=== PATIENT | male | born 1945 | race Caucasian/White ===

== ENCOUNTER → 2016-08-09 | Outpatient (CLI) | payer OTHER ==
--- NOTE | 2016-08-09 18:12 | DX ---
Chest, Two Views at 1731 hours History: Atrial fibrillation, I 48.91. Cough. Comparison: CT September 2013 Findings: Cardiac silhouette is within normal range. Lower thoracic levoscoliosis. Bilateral peribron chial thickening. No pneumonia, congestive heart failure, pleural effusion, or pneumothorax. Impression: 1. Bronchitis. 2. No definite pneumonia. 3. No pneumothorax. 4. Consider CT chest imaging if clinically indicated.
== END ==
LOC: FIMAGING 17:16
PROVIDERS: ATTEND Internal Medicine Cardiovascular Disease
DX: J40 Bronchitis, not specified as acute or chronic (principal); I48.91 Unspecified atrial fibrillation; R05 Cough

== ENCOUNTER → 2016-09-21 | Outpatient (CLI) | payer OTHER | LOC: BHFA 09:15 | PROVIDERS: ATTEND Internal Medicine Cardiovascular Disease | DX: I48.0 Paroxysmal atrial fibrillation (principal); I48.92 Unspecified atrial flutter; I47.1 Supraventricular tachycardia ==

== ENCOUNTER → 2016-10-23 | Outpatient (CLI) | payer OTHER ==
[~2016-10-23] MED LIST: IOPAMIDOL (ISOVUE 370) 100 ML BTL IV ONE
[2016-10-23 09:47] LABS: CREATININE 1.1 mg/dL (0.7-1.3); GLOMERULAR FILTRATION RATE > 60
== END ==
LOC: FIMAGING 08:59
PROVIDERS: ATTEND Internal Medicine Cardiovascular Disease
DX: I48.91 Unspecified atrial fibrillation (principal); R91.8 Other nonspecific abnormal finding of lung field
CPT/HCPCS: 75572; Q9967

== ENCOUNTER 2016-10-24 06:57 | Day surgery (SDC) | payer OTHER ==
[2016-10-24] MEDS ORDERED: MIDAZOLAM 2 MG/2 ML VIAL IVP ONE (06:58)
[2016-10-24] MEDS ORDERED: NS 1,000 ML IV ONE (06:58)
--- NOTE | 2016-10-24 07:21 | CPEKG ---
Heart Rate: 86 RR Interval: 698 P-R Interval: 252 QRSD Interval: 76 QT Interval: 380 QTC Interval: 455 P [place]: 82 QRS [place]: 59 T Wave [place]: 64 EKG Severity - ABNORMAL ECG - EKG Impression: SINUS RHYTHM EKG Impression: MULTIPLE ATRIAL PREMATURE COMPLEXES EKG Impression: SINUS PAUSE/ARREST WITH ATRIAL ESCAPE EKG Impression: FIRST DEGREE AV BLOCK EKG Impression: CONSIDER ANTERIOR INFARCT EKG Impression: ST ELEVATION IN PRIOR ECG (08-OCT-13) IS NOT PRESENT Electronically Signed By: Ian Mcgill 24-Oct-2016 09:00:53
[2016-10-24 07:43] LABS: % IMMATURE GRANULYOCYTES 0.6 % (0.0-1.1); ABSOLUTE IMMATURE GRANULOCYTES 0.03 10^3/uL (0.00-0.10); ADD DIFF? NO; ADD MORPH? NO; ADD SCAN? NO; ATYPICAL LYMPHOCYTE FLAG 20 (0-99); FRAGMENT RBC FLAG 0 (0-99); HEMATOCRIT 44.8 % (40.0-51.0); HEMOGLOBIN 15.8 g/dL (13.7-17.5); LEFT SHIFT FLG 0 (0-99); LIPEMIA HEMOLYSIS FLAG 90 (0-99); MEAN CELL HEMOGLOBIN 30.6 pg (27.9-34.1); MEAN CELL HEMOGLOBIN CONCENTR. 35.3 g/dL (32.4-36.7); MEAN CELL VOLUME 86.7 fL (81.5-99.8); MEAN PLATELET VOLUME 9.1 fL (8.7-11.7); PLATELET CLUMPS FLAG 0 (0-99); PLATELET COUNT 184 10^3/uL (150-400); RED BLOOD CELL COUNT 5.17 10^6/uL (4.40-6.38); RED CELL DISTRIBUTION WIDTH 12.6 % (11.5-15.2)
[2016-10-24 07:53] LABS: INR 0.95 (0.83-1.16); PROTIME(PATIENT) 12.6 SEC (12.0-15.0)
[2016-10-24 07:54] LABS: APTT 25.7 SEC (23.0-38.0)
[2016-10-24] MEDS ORDERED: BUPIVACAINE 0.5% 30 ML SDV ONE (08:00)
[2016-10-24] MEDS ORDERED: LIDOCAINE 1% 30 ML SDV ONE (08:00)
[2016-10-24] MEDS ORDERED: HEPARIN/DEXTROSE 25,000 UNIT/500 ML BAG IV ONE (08:00)
[2016-10-24] MEDS ORDERED: HEPARIN 10,000 UNIT/10 ML MDV ONE (08:00)
[2016-10-24 08:02] LABS: ANION GAP 6 mEq/L (8-16); CARBON DIOXIDE 27 mEq/l (22-31); CHLORIDE 107 mEq/L (97-110); GLOMERULAR FILTRATION RATE > 60; GLUCOSE 102 mg/dL (70-100); MAGNESIUM 2.2 mg/dL (1.6-2.3); POTASSIUM 4.3 mEq/L (3.5-5.2); SODIUM 140 mEq/L (134-144)
[2016-10-24] MEDS ORDERED: PROPOFOL 200 MG/20 ML VIAL ONE (08:34)
[2016-10-24] MEDS ORDERED: LIDOCAINE 2% 100 MG/5 ML SYR ONE (08:34)
[2016-10-24] MEDS ORDERED: fentaNYL 100 MCG/2 ML INJ ONE (08:34)
[2016-10-24] MEDS ORDERED: ROCURONIUM 100 MG/10 ML VIAL ONE (08:34)
[2016-10-24] MEDS ORDERED: MIDAZOLAM 2 MG/2 ML VIAL ONE ×2 (08:35→09:43)
[2016-10-24] MEDS ORDERED: ISOPROTERENOL HCL 0.2 MG/ML 5ML AMP ONE (09:23)
[2016-10-24] MEDS ORDERED: FLUMAZENIL 0.5 MG/5 ML MDV IVP ONE (10:19)
--- NOTE | 2016-10-24 11:53 | EPPROC ---
Electrophysiology Procedure Note: DIAGNOSTIC ELECTROPHYSIOLOGIC STUDY Procedures performed: 1. Fluoroscopy 2. EP evaluation with RA/RV/LA pace/record, with arrhythmia induction 3. EP evaluation with RA/RV pace record, insert/reposition catheter, with arrhythmia induction 4. Programmed stimulation + pacing after IV drug INDICATION: Prior CB ablation for AFIB at our institution Atrial tachycardia, symptomatic PROCEDURE: Catheters & Anesthesia: The patient arrived in the Electrophysiology Laboratory in the fasting state. The right clavicular region, right groin, & left groin area were prepped & draped in the usual sterile manner. Dr. Escobar administered general anesthesia. Appropriate non-invasive blood pressure, pulse oximetry & end- tidal CO2 monitoring was established. All catheters were placed percutaneously using the modified Seldinger technique , and advanced into position under fluoroscopic guidance One #7 Latvian deflectable octapolar electrode catheter was advanced to the His-bundle position via the left femoral vein (2mm spacing). One #7 Latvian Halo catheter was placed via the right femoral vein along the tricuspid annulus. One #7 Latvian deflectable catheter with 10 pairs of electrodes was placed via the left femoral vein into the coronary sinus. Programmed stimulation was performed from the right atrium, right ventricle and coronary sinus (left atrium). Parahisian pacing demonstrated VA block. Heparin was administered to keep ACT > 250 seconds. Prior to arrival to the EP lab the patient had salvos of atrial tachycardia, P waves narrower than during sinus rhythm, P waves positive in V1-V6, negative in inferior leads. Post anesthesia induction, atrial tachycardia was no longer seen. After 1 hour of programmed stimulation, the patient was recovered from anesthesia and procedure was continued for 1 more hour with the patient fully awake. Upto 2 beats of atrial tachycardia were seen, early activation was along the interatrial septul with His-A earlier than proximal CS. However not enough tachycardia was seen during the procedure for mapping and ablation. Isoproterenol in graded doses up to 8 mcg/min was used. No ablation was performed. The catheters were removed. The patient was transferred to the cardiovascular holding area in stable condition. Vascular access sheaths were removed in the holding area. There were no apparent complications. Results: A. Spontaneous Intervals: SCL 1040 ms AH 105 ms HV 45 ms B. Antegrade AV long function (decremental pacing) FPERP 520 ms WBB CL 510 ms C. Retrograde AV long function (decremental pacing) VA block CONCLUSIONS 1. Normal sinus and AV node function. 2. No evidence of accesory AV pathway presence. 3. No sustained arrhythmias induced. Nonsustained atrial tachycardia seen but not enough atrial tachycardia. 4. No apparent complications. Patient Problems: Problems Problem Status Onset Atrial tachycardia Acute Atrial fibrillation or flutter Acute
--- NOTE | 2016-10-24 12:25 | CPEKG ---
Heart Rate: 61 RR Interval: 984 P-R Interval: 220 QRSD Interval: 80 QT Interval: 400 QTC Interval: 403 P [place]: 42 QRS [place]: 55 T Wave [place]: 63 EKG Severity - ABNORMAL ECG - EKG Impression: SINUS RHYTHM EKG Impression: FIRST DEGREE AV BLOCK EKG Impression: LVH BY VOLTAGE EKG Impression: ST ELEVATION SUGGESTS PERICARDITIS Electronically Signed By: Ian Mcgill 24-Oct-2016 12:52:58
[2016-10-24] MEDS ORDERED: ATROPINE SULFATE 1 MG/10 ML SYR ONE (13:16)
[2016-10-24] MEDS ORDERED: ASCORBIC ACID 500 MG TAB PO SCH (16:00)
[2016-10-24] MEDS ORDERED: CALCIUM CARBONATE 500 MG TAB PO SCH (21:00)
[2016-10-25] MEDS ORDERED: APIXABAN 5 MG TAB PO SCH (08:00)
[2016-10-25] MEDS ORDERED: CHOLECALCIFEROL VIT D3 1,000 UNITS TAB PO SCH (09:00)
[2016-10-25] MEDS ORDERED: GLUCOSAMINE/CHONDROITIN CAP PO SCH (09:00)
[2016-10-25] MEDS ORDERED: OMEGA-3 FATTY ACIDS 1,000 MG CAP PO SCH (09:00)
== END 2016-10-24 18:52 | disposition home or self-care (01) ==
LOC: FCATH 06:57
PROVIDERS: ATTEND Internal Medicine Cardiovascular Disease
DX: I48.92 Unspecified atrial flutter (principal); I47.1 Supraventricular tachycardia
CPT/HCPCS: 93005; 93312; 93620; 93623; C1731; J0461; J1644; J2001; J2250; J2704; J3010

== ENCOUNTER → 2016-11-23 | Outpatient (CLI) | payer OTHER | LOC: BHFA 09:30 | PROVIDERS: ATTEND Internal Medicine Cardiovascular Disease | DX: I47.1 Supraventricular tachycardia (principal) ==

== ENCOUNTER 2016-12-12 07:01 | Observation (INO) | payer OTHER ==
[2016-12-12] MEDS ORDERED: NS 1,000 ML IV ONE (07:08)
[2016-12-12] MEDS ORDERED: MIDAZOLAM 2 MG/2 ML VIAL IVP ONE (07:08)
--- NOTE | 2016-12-12 07:29 | CPEKG ---
Heart Rate: 56 RR Interval: 1071 P-R Interval: 216 QRSD Interval: 76 QT Interval: 448 QTC Interval: 433 P [place]: 55 QRS [place]: 67 T Wave [place]: 72 EKG Severity - NORMAL ECG - EKG Impression: SINUS RHYTHM EKG Impression: FIRST-DEGREE AV BLOCK EKG Impression: COMPARED WITH 10/24/2016 AT 12:23 P.M., EARLY REPOLARIZATION PATTERN IS LESS EKG Impression: PROMINENT Electronically Signed By: Shanna Cherry 12-Dec-2016 09:57:50
[2016-12-12 07:44] LABS: % IMMATURE GRANULYOCYTES 0.4 % (0.0-1.1); ABSOLUTE IMMATURE GRANULOCYTES 0.02 10^3/uL (0.00-0.10); ADD DIFF? NO; ADD MORPH? NO; ADD SCAN? NO; ATYPICAL LYMPHOCYTE FLAG 0 (0-99); FRAGMENT RBC FLAG 0 (0-99); HEMATOCRIT 43.9 % (40.0-51.0); HEMOGLOBIN 15.3 g/dL (13.7-17.5); LEFT SHIFT FLG 0 (0-99); LIPEMIA HEMOLYSIS FLAG 90 (0-99); MEAN CELL HEMOGLOBIN 30.7 pg (27.9-34.1); MEAN CELL HEMOGLOBIN CONCENTR. 34.9 g/dL (32.4-36.7); MEAN CELL VOLUME 88.2 fL (81.5-99.8); MEAN PLATELET VOLUME 9.1 fL (8.7-11.7); PLATELET CLUMPS FLAG 10 (0-99); PLATELET COUNT 200 10^3/uL (150-400); RED BLOOD CELL COUNT 4.98 10^6/uL (4.40-6.38); RED CELL DISTRIBUTION WIDTH 12.5 % (11.5-15.2)
[2016-12-12 08:01] LABS: ANION GAP 9 mEq/L (8-16); CALCIUM 9.1 mg/dL (8.5-10.4); CARBON DIOXIDE 24 mEq/l (22-31); CHLORIDE 106 mEq/L (97-110); CREATININE 1.1 mg/dL (0.7-1.3); GLOMERULAR FILTRATION RATE > 60; GLUCOSE 89 mg/dL (70-100); MAGNESIUM 2.2 mg/dL (1.6-2.3); POTASSIUM 4.1 mEq/L (3.5-5.2); SODIUM 139 mEq/L (134-144)
[2016-12-12] MEDS ORDERED: BUPIVACAINE 0.5% 30 ML SDV ONE (08:13)
[2016-12-12] MEDS ORDERED: ISOPROTERENOL HCL 0.2 MG/ML 5ML AMP ONE (08:13)
[2016-12-12] MEDS ORDERED: HEPARIN 10,000 UNIT/10 ML MDV ONE ×2 (08:13→09:00)
[2016-12-12] MEDS ORDERED: LIDOCAINE 1% 30 ML SDV ONE (08:13)
[2016-12-12 08:44] LABS: APTT 25.9 SEC (23.0-38.0); INR 1.03 (0.83-1.16); PROTIME(PATIENT) 13.4 SEC (12.0-15.0)
[2016-12-12] MEDS ORDERED: IOPAMIDOL (ISOVUE-300) 100 ML BTL ONE (09:51)
[2016-12-12] MEDS ORDERED: PROTAMINE SULFATE 50 MG/5 ML VIAL IVP ONE (12:09)
[2016-12-12] MEDS ORDERED: ONDANSETRON 4 MG/2 ML VIAL IVP PRN (12:32)
[2016-12-12] MEDS ORDERED: ACETAMINOPHEN 325 MG TAB PO PRN (12:32)
[2016-12-12] MEDS ORDERED: OXYCODONE/APAP 5/325 TAB PO PRN (12:32)
[2016-12-12] MEDS ORDERED: ATROPINE SULFATE 1 MG/10 ML SYR ONE (12:58)
--- NOTE | 2016-12-12 13:07 | CPEKG ---
Heart Rate: 58 RR Interval: 1034 P-R Interval: 240 QRSD Interval: 80 QT Interval: 444 QTC Interval: 437 P [place]: 74 QRS [place]: 46 T Wave [place]: 65 EKG Severity - ABNORMAL ECG - EKG Impression: SINUS RHYTHM EKG Impression: FIRST DEGREE AV BLOCK EKG Impression: ST ELEVATION SUGGESTS PERICARDITIS OR EARLY REPOL PATTERN Electronically Signed By: Shanna Cherry 12-Dec-2016 14:35:44
[2016-12-12 13:21] LABS: ANION GAP 10 mEq/L (8-16); CALCIUM 8.4 mg/dL (8.5-10.4); CARBON DIOXIDE 24 mEq/l (22-31); CHLORIDE 106 mEq/L (97-110); GLOMERULAR FILTRATION RATE > 60; GLUCOSE 103 mg/dL (70-100); MAGNESIUM 2.1 mg/dL (1.6-2.3); POTASSIUM 3.9 mEq/L (3.5-5.2); SODIUM 140 mEq/L (134-144)
--- NOTE | 2016-12-12 13:38 | EPPROC ---
Electrophysiology Procedure Note: ELECTROPHYSIOLOGIC STUDY AND CATHETER MEDIATED ABLATION FOR LEFT ATRIAL TACHYCARDIA (PRIOR AFIB CRYOBALLOON ABLATION) Procedures performed: 89150-97 EP evaluation with RA/RV/LA pace/record, with arrhythmia induction 72725-07 EP evaluation with RA/RV pace record, insert/reposition catheter, with arrhythmia induction 82784 Atrial fibrillation ablation 24229 3D mapping Intracardiac echocardiogram Transseptal puncture Fluoroscopy INDICATION: Recurrent left atrial tachycardia PROCEDURE: The patient arrived in the Electrophysiology Laboratory in the fasting state. The right groin, left groin and right infraclavicular area were prepped and draped in the usual sterile fashion. Procedure was done with patient fully awake as tachycardia could not be induced during prior procedure post sedation. All catheters were placed percutaneously using the Seldinger technique and advanced into position under fluoroscopic guidance. One #7 Chinese deflectable octapolar electrode catheter was placed in the His-bundle position via the left femoral vein . A 20 pole catheter was placed in the coronary sinus. One #8 Chinese AcuNaV ultrasound catheter was placed in the left femoral vein and advanced into the right atrium. One #4 Chinese sheath was inserted into the left femoral artery via percutaneous technique and used for continuous arterial blood pressure monitoring and intermittent ACT determination. Programmed stimulation was performed from the right atrium, left atrium (CS) and right ventricle. There was no evidence of AV accessory pathway. There was dual AV long physiology but AVNRT was not inducible. During infusion of isoproterenol 2 mcg/min an atrial tachycardia, CL 340-400 ms was inducible. There was variable cycle length but CS activation pattern was constant. Entrainment mapping ruled out right atrial tachycardia. Intracardiac echo evaluation of the left atrium and pulmonary veins was performed. Baseline ACT was drawn and heparin bolus was administered and heparin drip was started prior to transseptal puncture. ACT was checked every 15 minutes and maintained in the range of 350-400 seconds. One SL1 sheaths (8.5 Fr ) was inserted into the right femoral vein and advanced into the right atrium. Transseptal puncture was performed under intracardiac ultrasound, fluoroscopic and hemodynamic guidance placing the two sheaths into the left atrium. [facility] RF needle (C1 curve) was used. The mean left atrial pressure was 12 mmHg. A high resolution map of the left atrium and all 4 PV was done using Pentaray catheter. This showed RSPV, RIPV and LIPV to be isolated. LSPV was not isolated with normal voltage seen anteriorly. Activation map and electrograms confirmed that there was ongoing atrial fibrillation in the LSPV which conducted variably to the left atrium through this gap. Ablation anterior to LSPV and at the danis terminated atrial tachycardia as PV isolation was achieved. One #8 Chinese quadrapolar electrode catheter (1mm-5mm-2mm spacing) with saline irrigated 3.5mm tip electrode (RelateIQter Thermo-Cool catheter) and location sensor for the Tranz 3D mapping system was inserted through the transseptal sheath and positioned outside the orifice of the left superior pulmonary vein. A 15-25 mm variable Lasso catheter was placed inside the LSPV antrum. Post ablation, with isoproterenol 4 mcg/min infusion, no atrial tachycardia or atrial fibrillation could be induced. . ICE imaging was consistent with pre ablation imaging; moreover it showed no pericardial effusion or LA/[place] thrombus at the end of the procedure. The catheters were withdrawn. SL1 sheath was changed to 9 Fr short sheath. Protamine was given. The sheaths were removed and manual pressure was used for hemostasis. . There were no complications. CONCLUSIONS: 1. Left atrial tachycardia related to recurrent conduction along the anterior aspect of the left superior pulmonic vein.. 2. Successful pulmonary vein isolation procedure (LSPV) with termination of atrial fibrillation (in the vein) and left atrial tachycardia. 3. No apparent complications. Patient Problems: Problems Problem Status Onset Atrial fibrillation or flutter Acute Atrial tachycardia Acute
--- NOTE | 2016-12-12 14:56 | CPEKG ---
Heart Rate: 102 RR Interval: 588 QRSD Interval: 76 QT Interval: 376 QTC Interval: 490 QRS [place]: 40 T Wave [place]: 66 EKG Severity - ABNORMAL ECG - EKG Impression: ONE SINUS BEAT EKG Impression: A-FLUTTER W/ PREDOM 2:1 AV BLOCK, A-RATE 205 EKG Impression: BORDERLINE PROLONGED QT INTERVAL EKG Impression: COMPARED [facility] 12 DEC 2016 AT 13:06, AFLUTTER NOW PRESENT. QT LONGER Electronically Signed By: Shanna Cherry 12-Dec-2016 17:17:24
[2016-12-12] MEDS: ENOXAPARIN 80 MG/0.8 ML SYR SC SCH (22:00)
[2016-12-13 05:55] LABS: % IMMATURE GRANULYOCYTES 0.3 % (0.0-1.1); ABSOLUTE IMMATURE GRANULOCYTES 0.02 10^3/uL (0.00-0.10); ADD DIFF? NO; ADD MORPH? NO; ADD SCAN? NO; ATYPICAL LYMPHOCYTE FLAG 0 (0-99); FRAGMENT RBC FLAG 0 (0-99); HEMOGLOBIN 14.4 g/dL (13.7-17.5); LEFT SHIFT FLG 0 (0-99); LIPEMIA HEMOLYSIS FLAG 90 (0-99); MEAN CELL HEMOGLOBIN 30.9 pg (27.9-34.1); MEAN CELL HEMOGLOBIN CONCENTR. 34.3 g/dL (32.4-36.7); MEAN CELL VOLUME 90.1 fL (81.5-99.8); MEAN PLATELET VOLUME 9.2 fL (8.7-11.7); PLATELET CLUMPS FLAG 30 (0-99); PLATELET COUNT 164 10^3/uL (150-400); RED BLOOD CELL COUNT 4.66 10^6/uL (4.40-6.38); RED CELL DISTRIBUTION WIDTH 12.7 % (11.5-15.2)
[2016-12-13 06:05] LABS: INR 1.14 (0.83-1.16); PROTIME(PATIENT) 14.5 SEC (12.0-15.0)
[2016-12-13 06:21] LABS: ANION GAP 8 mEq/L (8-16); CALCIUM 8.7 mg/dL (8.5-10.4); CARBON DIOXIDE 21 mEq/l (22-31); CHLORIDE 110 mEq/L (97-110); GLOMERULAR FILTRATION RATE > 60; GLUCOSE 85 mg/dL (70-100); POTASSIUM 4.2 mEq/L (3.5-5.2); SODIUM 139 mEq/L (134-144)
[2016-12-13 06:33] LABS: CREATINE KINASE-MB FRACTION 2.33 ng/mL (0-3.19); TROPONIN I 0.314 ng/mL (0-0.034)
[2016-12-13] MEDS: ENOXAPARIN 80 MG/0.8 ML SYR SC SCH (06:59)
[2016-12-13 08:10] VITALS: TEMP 97.5
[2016-12-13] MEDS ORDERED: FLUTICASONE NASAL 120 SPRAYS/16 GM MDI NS SCH (09:00)
--- NOTE | 2016-12-13 09:05 | CPEKG ---
Heart Rate: 55 RR Interval: 1091 P-R Interval: 224 QRSD Interval: 78 QT Interval: 428 QTC Interval: 410 P [place]: 50 QRS [place]: 50 T Wave [place]: 67 EKG Severity - ABNORMAL ECG - EKG Impression: SINUS RHYTHM EKG Impression: FIRST DEGREE AV BLOCK EKG Impression: BORDERLINE T ABNORMALITIES, ANT-LAT LEADS EKG Impression: COMPARED WITH 12/12/2016 AT 14:55, NSR NOW PRESENT. QT INTERVAL SHORTER Electronically Signed By: Shanna Cherry 13-Dec-2016 10:48:59
--- NOTE | 2016-12-13 09:25 | ECHO ---
[id number] + + [address] : : [place] [address] : : [phone] + + Adult Echocardiographic Report + -------+ :Name: QUYNH ZAZUETAjose alejandrodonovan Date: 12/13/2016 08:19 AM : : Hospital Admission Number: [id number] Locati on: 253: :: 1945 Gender: Male Height: 75 in : :Age: 70 yrs Race: WH,White Weight: 180 lb : :Reason For Study: Eval LV Fx : : BSA: 2.1 meter s2 : :History: Post Ablation : + -------+ MMode/2D Measurements \T\ Calculations IVSd: 1.0 cm LVIDd: 5.1 cm FS: 38.0 % Ao root diam: 3.6 cm LVPWd: 1.2 cm LVIDs: 3.1 cm EDV(Teich): 121.6 ml ACS: 2.0 cm ESV(Teich): 39.0 ml EF(Teich): 67.9 % Normal Measurement Values: + + :LVIDd (3.5-5.7cm) IVSd (0.6-1.1cm) LVPWd (0.6-1.1cm) Aortic Root (2.0-3.7cm)Left Atrium (1.5-4.0cm): :LV Vol(d) (76-115ml) LV Vol(s) (29-48ml) Ejec Fraction (50-65%)PV Chintan (0.6- 1.2m/s) TV Chintan (0.4-1.0m/s) : :MV E Chintan (0.8-1.0m/s)MV A Chintan (0.3-1.0m/s)LVOT Chint[place] (0.7-1.2m/s) Asc Ao Chintan ( 0.9-1.8m/s) : + + Doppler Measurements \T\ Calculations MV E max chintan: Ao V2 max: LV V1 max: PA V2 max: 69.6 cm/sec 139.8 cm/sec 122.8 cm/sec 82.8 cm/sec MV A max chintan: Ao max P.8 mmHgLV V1 max PG: PA max P.4 cm/sec 6.0 mmHg 2.7 mmHg MV E/A: 1.6 PI end-d chintan: 99.1 cm/sec Left Ventricle The left ventricle is normal in size. There is borderline concentric left ventricular hypertrophy. The left ventricular ejection fraction is normal. Ejection Fraction = 68%. The left ventricular wall motion is normal. Right Ventricle The right ventricle is normal in size and function. Atria The left atrial size is normal. Right atrial size is normal. Mitral Valve The mitral valve is normal in structure and function. There is no evidence of mitral valve prolapse. There is no mitral valve stenosis. There is trace mitral regurgitation. Tricuspid Valve There is trace tricuspid regurgitation. Aortic Valve The aortic valve is normal in structure and function. The aortic valve is trileaflet. The aortic valve opens well. There is no aortic stenosis. There is no aortic insufficiency. Pulmonic Valve The pulmonic valve is normal in structure and function. There is no pulmonic valvular regurgitation. Great Vessels The aortic root is normal size. Conclusion A complete two-dimensional transthoracic echocardiogram was performed (2D, M-mode, Doppler and color flow Doppler). There is borderline concentric left ventricular hypertrophy. The left ventricular ejection fraction is normal. Ejection Fraction = 68%. The left ventricular wall motion is normal. The right ventricle is normal in size and function. The left atrial size is normal. Right atrial size is normal. The mitral valve is normal in structure and function. There is trace mitral regurgitation. There is trace tricuspid regurgitation. The aortic valve is normal in structure and function. The aortic valve is trileaflet. The pulmonic valve is normal in structure and function. Final Reading Physician: Jl Avery MD electronically signed on 12/13/2016 09:24 AM Ordering Physician: Jl Avery Performed By: Lamont Plasencia, RDCS
[2016-12-13 10:48] VITALS: BP 107/64; RESP 20
[2016-12-13 13:04] VITALS: PULSE 56; O2SAT 98
--- NOTE | 2016-12-13 13:04 | GDS ---
[f rep st] DISCHARGE SUMMARY DISCHARGE DIAGNOSES: 1. Atrial tachycardia, status post left superior pulmonic vein isolation with cryo-balloon ablation . 2. Previous atrial fibrillation ablation 3 years ago. 3. Recent attempt at atrial tachycardia ablation approximately 1 month ago, unsuccessful due to use of periprocedural anesthesia. PROCEDURES: 1. 12/12/2016: Electrophysiology procedure with left atrial tachycardia related to recurrent condu ction along the anterior aspect of the left superior pulmonic vein, status post successful pulmonary vein isolation with termination of atrial fibrillation in the vein and left atrial tachycardia. 2. 12/13/2016: Echocardiogram with EF of 68%, normal LV wall motion, normal RV size and function, normal left atrial and right atrial sizes, trace MR, trace TR. BRIEF HISTORY: Please see dictated H and P by Dr. Avery for complete details. In brief, the patient is a 70-year-old male with a previous history of A-fib ablation 3 years ago. He has been noted to h ave atrial tachycardias. EP study last month was done, but no atrial tachycardia could be induced o n the EP study, despite atrial tachycardia occurring prior to his procedure. His procedure was repe ated without any sedation whatsoever. He was able to perform the atrial tachycardia ablation. On d ay of discharge, patient denies any groin pain, chest pain, or dyspnea. Telemetry appears stable. PHYSICAL EXAMINATION: VITAL SIGNS: On day of discharge, blood pressure 107/64, heart rate __ respirations 20, O2 saturation 99% on room air. GENERAL: He is a very pleasant male in no appar ent distress. EYES: SAM. HEART: Regular rate and rhythm. LUNGS: Clear. BILATERAL GROIN SITES : Without ecchymosis, bruits, or tenderness. LABORATORY DATA: CBC with WBC 6.52, hemoglobin 14.4, hematocrit 42, platelet count of 164. BMP wit h sodium 139, potassium 4.2, chloride 110, CO2 21, BUN 17, creatinine 1. Troponin 0.0314, consisten t with recent ablation. Results pending: None. DIET: Per previous. ACTIVITY: Groin precautions reviewed. DISCHARGE MEDICATIONS: Please see med reconciliation for complete details. He is being discharged on his Flonase, ascorbic acid, and apixaban. He is advised to start omeprazole 20 mg p.o. daily for the next 4-6 weeks. FOLLOWUP: With Dr. Avery in 1 month. /[id number]/MODL
== END 2016-12-13 13:07 | disposition home or self-care (01) ==
LOC: FCATH 07:01 → F2N 12:32
PROVIDERS: ADMIT Internal Medicine Cardiovascular Disease; ATTEND Internal Medicine Cardiovascular Disease
PROC: B245ZZZ Ultrasonography of Left Heart (ICD-10-PCS; principal; 2016-12-12)
PROC: 5A1213Z Performance of Cardiac Pacing, Intermittent (ICD-10-PCS; principal; 2016-12-12)
PROC: 4A023FZ Measurement of Cardiac Rhythm, Percutaneous Approach (ICD-10-PCS; principal; 2016-12-12)
PROC: 02K83ZZ Map Conduction Mechanism, Percutaneous Approach (ICD-10-PCS; principal; 2016-12-12)
PROC: 025T3ZZ Destruction of Left Pulmonary Vein, Percutaneous Approach (ICD-10-PCS; principal; 2016-12-12)
PROC: B246ZZZ Ultrasonography of Right and Left Heart (ICD-10-PCS; principal; 2016-12-12)
DX: I47.1 Supraventricular tachycardia (principal); I48.0 Paroxysmal atrial fibrillation; I48.92 Unspecified atrial flutter
CPT/HCPCS: 93005; 93306; 93613; 93621; 93623; 93657; 93662; C1730; C1731; C1732; C1759; C1893; J1644; J1650; J2720; Q9967; J0461

== ENCOUNTER → 2017-01-11 | Outpatient (CLI) | payer OTHER | LOC: BHFA 11:30 | PROVIDERS: ATTEND Internal Medicine Cardiovascular Disease | DX: I47.1 Supraventricular tachycardia (principal) ==

== ENCOUNTER 2017-04-04 08:06 | Inpatient (IN) | payer OTHER ==
[~2017-04-04 08:06] MED LIST changes: -IOPAMIDOL (ISOVUE 370) 100 ML BTL IV ONE; +ROPIVACAINE 0.2% 80 MG, EPINEPHrine 0.2 MG, KETOROLAC TROMETHAMINE 30 MG, morphINE 10 M... IU ONE; +TRANEXAMIC ACID 1,000 MG in NS 100 ML IV ONE
[2017-04-04] MEDS ORDERED: ceFAZolin 2 GM/DEXTROSE 100 ML IV ONE (08:21)
[2017-04-04] MEDS ORDERED: LIDOCAINE 1% 2 ML INJ ID PRN (08:35)
[2017-04-04] MEDS ORDERED: LR 1,000 ML IV ONE (08:35)
[2017-04-04] MEDS ORDERED: ceFAZolin 1 GM/5 ML SYR ONE (10:52)
[2017-04-04] MEDS ORDERED: MIDAZOLAM 2 MG/2 ML VIAL IVP ONE (11:36)
--- NOTE | 2017-04-04 11:37 | PDANEPAE ---
ANE History of Present Illness Knee OA ANE Past Medical History - Cardiovascular History Hx Hypertension: No Hx Arrhythmias: No Hx Chest Pain: No Hx Coronary Artery / Peripheral Vascular Disease: No Hx CHF / Valvular Disease: No Hx Palpitations: No Cardiovascular History Comment: CARDIAC ABLATION X 2 FOR ATRIAL FIB - Pulmonary History Hx COPD: No Hx Asthma/Reactive Airway Disease: No Hx Recent Upper Respiratory Infection: No Hx Oxygen in Use at Home: No Hx Sleep Apnea: No Sleep Apnea Screening Result - Last Documented: Negative - Neurologic History Hx Cerebrovascular Accident: No Hx Seizures: No Hx Dementia: No - Endocrine History Hx Diabetes: No - Renal History Hx Renal Disorders: No - Liver History Hx Hepatic Disorders: No - Neurological & Psychiatric Hx Hx Neurological and Psychiatric Disorders: No - Cancer History Hx Cancer: No Cancer History Comment: SKIN CANCER BASAL - Congenital Disorder History Hx Congenital Disorders: No - GI History Hx Gastrointestinal Disorders: No - Other Health History Other Health History: NEG - Chronic Pain History Chronic Pain: Yes (KNEE PAIN) - Surgical History Prior Surgeries: APPENDECTOMY. CARDIAC ABLATION X2 NOVEMBER 2016 & SEPTEMBER 2013. KNEE SCOPE ANE Review of Systems Review of Systems: - Exercise capacity METS (RN): 5 METS ANE Patient History - Allergies Allergies/Adverse Reactions: No Known Allergies Allergy (Unverified 08/10/09 12:24) - Home Medications Home medications: home medication list seen and reviewed Home Medications: Ascorbic Acid [Vitamin C 500 mg (*)] 1 tab PO DAILY 10/07/13 [Last Taken 1 Week Ago ~03/28/17] Herbals/Supplements -Info Only 1 ea PO DAILY 10/24/16 [Last Taken 1 Week Ago ~] [place]-3 Fatty Acids [Fish Oil 1000 mg (*)] 1,000 mg PO DAILY 10/24/16 [Last Taken 1 Week Ago ~03/28/17] - NPO status NPO Since - Liquids (Date): 04/04/17 NPO Since - Liquids (Time): 07:00 NPO Since - Solids (Date): 04/03/17 NPO Since - Solids (Time): 22:00 - Smoking Hx Smoking Status: Never smoked - Family Anes Hx Family Hx Anesthesia Complications: NEG ANE Labs/Vital Signs - Vital Signs Blood Pressure: 138/95 Heart Rate: 50 Respiratory Rate: 12 O2 Sat (%): 95 Height: 190.5 cm Weight: 79.379 kg ANE Physical Exam - Airway Neck exam: FROM Mallampati Score: Class 1 Mouth exam: normal dental/mouth exam - Pulmonary Pulmonary: no respiratory distress - Cardiovascular Cardiovascular: regular rate and rhythym - ASA Status ASA Status: II ANE Anesthesia Plan Anesthesia Plan: MAC, spinal Regional Anesthesia: adductor canal FNB
--- NOTE | 2017-04-04 11:39 | PDHPUP ---
History & Physical Update H&P update statement: This history and physical update is based on an assessment of the patient which was completed after admission or registration (within 24 hours), but prior to the surgery/procedure. H&P update: H&P reviewed & patient examined, no change in patient's condition since H&P completed
[2017-04-04] MEDS ORDERED: PROPOFOL/EMULSION 500 MG/50 ML BOTTLE IV ONE ×2 (11:42→13:13)
[2017-04-04] MEDS ORDERED: LIDOCAINE 2% 5 ML SDV ONE (11:44)
[2017-04-04] MEDS ORDERED: ROPIVACAINE HCL 150 MG/30 ML INJ ONE (12:35)
[2017-04-04] MEDS ORDERED: ONDANSETRON 4 MG/2 ML VIAL IVP PRN ×2 (13:46→14:32)
[2017-04-04] MEDS ORDERED: fentaNYL 100 MCG/2 ML INJ IVP PRN (13:46)
[2017-04-04] MEDS ORDERED: NALOXONE HCL 0.4 MG/ML INJ IVP PRN (13:46)
--- NOTE | 2017-04-04 14:31 | POSTOPPROG ---
Post Op Note Date of Operation: 04/04/17 Surgeon: Daisha Tracy Air Filler: Daisha Tracy PA-C Anesthesiologist: Amelie Anesthesia: Spinal Pre-op Diagnosis: R knee osteoarthritis Post-op Diagnosis: R knee osteoarthritis Procedure: R TKA Findings: See full dictation Inf/Abcess present in the surg proc area at time of surgery?: No Depth: Organ Space EBL: Minimal
[2017-04-04] MEDS ORDERED: MAGNESIUM HYDROXIDE 30 ML UDCUP PO PRN (14:32)
[2017-04-04] MEDS ORDERED: ONDANSETRON DISINTEGRATING 4 MG TAB PO PRN (14:32)
[2017-04-04] MEDS ORDERED: POLYETHYLENE GLYCOL 3350 17 GM PKT PO PRN (14:32)
[2017-04-04] MEDS ORDERED: PHARMACY PAIN CONSULT 1 EA MISC PRN (14:32)
[2017-04-04] MEDS ORDERED: CYCLOBENZAPRINE 10 MG TAB PO PRN (14:32)
[2017-04-04] MEDS ORDERED: DIPHENOXYLATE/ATROPINE LOMOTIL 1 TAB PO PRN (14:32)
[2017-04-04] MEDS ORDERED: PROMETHAZINE HCL 25 MG SUPPR PR PRN (14:32)
[2017-04-04] MEDS ORDERED: LACTULOSE 20 GM/30 ML UDCUP PO PRN (14:32)
[2017-04-04] MEDS ORDERED: TEMAZEPAM 15 MG CAP PO PRN (14:32)
[2017-04-04] MEDS ORDERED: BISACODYL 10 MG SUPP PR PRN (14:32)
[2017-04-04] MEDS ORDERED: diphenhydrAMINE 25 MG CAP PO PRN (14:32)
[2017-04-04] MEDS ORDERED: PROMETHAZINE HCL 25 MG/ML INJ IVP PRN (14:32)
[2017-04-04] MEDS ORDERED: METOCLOPRAMIDE 10 MG/2 ML VIAL IVP PRN (14:32)
[2017-04-04] MEDS ORDERED: KETOROLAC 30 MG/1 ML SDV IVP PRN (14:32)
[2017-04-04] MEDS ORDERED: traMADol 50 MG TAB PO PRN (14:32)
--- NOTE | 2017-04-04 14:35 | POSTANESTH ---
Post Anesthetic Evaluation Cardiovascular Status: Normal, Stable Respiratory Status: Normal, Stable Level of Consciousness/Mental Status: Can Participate in Eval Pain Control: Adequate, Prn Tx Ordered Nausea/Vomiting Control: Adequate, Prn Tx Ordered Complications Possibly Related to Anesthesia: None Noted (Adductor cannal block done in recovery. Well tolerated.)
--- NOTE | 2017-04-04 15:02 | GOP ---
[f rep st] OPERATIVE REPORT DATE OF OPERATION: 04/04/2017 SURGEON: Miguelito Nugent MD PROTOTYPE ENGINEER MANAGER: Daisha Tracy PA-C. ANESTHESIA: General. PREOPERATIVE DIAGNOSIS: Right knee osteoarthritis with moderate genu varum. POSTOPERATIVE DIAGNOSIS: Right knee osteoarthritis with moderate genu varum. PROCEDURE PERFORMED: Right total knee arthroplasty with ConforMIS custom knee (cruciate retaining). FINDINGS: DESCRIPTION OF PROCEDURE: The patient was taken to the operating room, administered general anesthes ia, placed in the supine position. The right lower extremity was prepped and draped in normal steril e fashion. Esmarch exam was performed followed by elevation of the thigh cuff to 275 mmHg pressure. A midline incision was made through dermal subcutaneous tissues. Medial parapatellar incision was m lay. The patella was reflected laterally. The anterior portion of the medial and lateral menisci we re excised. The fat pad was recessed. The patella was sized. The patella was cut at 9 mm thickness . The 3 drill lugs were drilled for a 35 mm patellar button. The distal femur was exposed. The distal femoral drill guide was placed in the distal femur and a dr ill was passed down to subchondral bone on medial and lateral femoral condyles. The distal femoral c utting guide was then placed in the distal femur and secured proximally with 3 pins and distally with 2 pins. The distal femoral cut was then made. The distal 2 pin holes were used for markings for a rotational axis. The tibia was subluxed anteriorly and retractors were put in position. The posteri or portion of the medial and lateral menisci were excised. The tibial articular surface was denuded of its chondral tissue down to subchondral bone on both medial and lateral tibial plateaus using a ri ng curette. The tibial alignment device was then placed in the tibia and exiting off the subchondral bone. It wa s secured proximally with 3 pins. The tibial cut was then made with the oscillating saw. The flexio n and extension gaps were assessed for balance. The knee was a little tight in flexion and extension . We elected to go with a 2 mm larger cut on the tibia. The pins were reinserted and the cutting gu arnaud was replaced. The cut was then made with the oscillating saw. The distal femoral AP cutting blo ck was then placed in the distal femur. It rotated into appropriate axis and our flexion gap was aga in assessed with that block in place. We subsequently made our AP cuts followed by our anterior annabel cristal cuts. The posterior chamfer cutting block was then placed into the drill lugs and the distal fem ur. The 2 posterior chamfer cuts were then made with the oscillating saw. The trial femoral insert was put in place. Osteophytes were removed from around the posterior aspect of the femur. The trial tibial insert was put in place. The knee was put through flexion, extensio n to access motion and rotational assessment was made for the tibia. This was then marked. The tibi al guide was then placed in the proximal tibia. Our metaphyseal drill was passed down through the pr oximal tibia. The fin cutting block was then impacted in the proximal tibia. All trials were aislinn t out. Thorough lavage was performed with normal saline. All surfaces were thoroughly dried. The tibia was cemented into place, followed by the femur, followed by the patella. All excess cement was removed. The trial inserts were put in position. A 6 mm medial A lateral was selected. The re al inserts were opened. The real inserts were impacted into position. The knee was put through flex ion extension arc of motion and full motion was obtained without significant undue tension. The knee was stable to varus valgus stressing. Thorough lavage was performed with normal saline. Our cock[place] solution was used deeply in and around the subcutaneous tissues. The retinaculum was then closed with a #1 Vicryl suture followed by closure of the subcutaneous tissue with 2-0 Vicryl suture followe d by closure of the dermis with rashaun. A sterile compression dressing was applied. ALMAZ hose were applied. The patient tolerated the procedure well, was transferred back to recovery in stable condition. No operative complications. COMPLICATIONS: None. /[id number]/MODL
[2017-04-04] MEDS: NS 1,000 ML IV SCH (16:17)
[2017-04-04] MEDS: oxyCODONE IR 5 MG TAB PO PRN (17:01)
[2017-04-04] MEDS: ACETAMINOPHEN 325 MG TAB PO SCH ×2 (18:40→23:22)
[2017-04-04] MEDS: FAMOTIDINE 20 MG TAB PO SCH (21:15)
[2017-04-04] MEDS: ceFAZolin 2 GM/DEXTROSE 100 ML IV SCH (21:15)
[2017-04-04] MEDS: SENNOSIDES/DOCUSATE SODIUM TAB PO SCH (22:18)
[2017-04-05 04:15] VITALS: PULSE 56
[2017-04-05] MEDS: NS 1,000 ML IV SCH (05:38)
[2017-04-05] MEDS: ACETAMINOPHEN 325 MG TAB PO SCH ×2 (05:38→11:26)
[2017-04-05 05:42] LABS: HEMATOCRIT 39.1 % (40.0-51.0); HEMOGLOBIN 13.5 g/dL (13.7-17.5)
[2017-04-05] MEDS: ceFAZolin 2 GM/DEXTROSE 100 ML IV SCH (05:47)
--- NOTE | 2017-04-05 07:33 | SOAPPROG ---
SOAP Progress Note Assessment/Plan: Assessment/Plan: s/p R TKA POD#1 - Continue pain management, encourage PO - PT/OT - Lovenox 40mg daily for VTE chemoprophylaxis - SCDs/TEDs for mechanical prophylaxis - Continue antibiotic prophylaxis until course is finished - Discharge pending PT/OT approval and appropriate pain control with oral medications 04/05/17 07:30 Subjective: Pt states he is doing well, pain is well managed. Pt denies fever, chills, chest pain, SOB, abdominal pain, N/V/D, numbness, tingling and calf pain. Objective: Vital Signs Temp Pulse Resp BP Pulse Ox 37.3 C 56 L 18 99/54 L 91 L 04/05/17 04:00 04/05/17 04:00 04/05/17 04:00 04/05/17 04:00 04/05/17 04:00 Laboratory Results 04/05/17 04:57 04/04/17 04/05/17 04/06/17 05:59 05:59 05:59 Intake Total 4560 Output Total 500 Balance 4060 Physical Exam - Physical Exam General Appearance: alert, no apparent distress Cardiac/Chest: normal peripheral pulses Skin: normal color, warm/dry, other (post-operative dressing clean and intact) Extremities: normal inspection, normal capillary refill, swelling (localized edema R knee), Jyoti's sign, other (Able to perform a SLR on the R side), No pedal edema, No calf tenderness Neuro/Psych: no motor/sensory deficits, alert, normal mood/affect, oriented x 3 ICD10 Worksheet Patient Problems: Problems Problem Status Onset Atrial fibrillation or flutter Acute Atrial tachycardia Acute
[2017-04-05] MEDS: FAMOTIDINE 20 MG TAB PO SCH (08:27)
[2017-04-05] MEDS: SENNOSIDES/DOCUSATE SODIUM TAB PO SCH (08:27)
[2017-04-05] MEDS ORDERED: NS 1,000 ML IV ONE (09:00)
[2017-04-05] MEDS ORDERED: ENOXAPARIN 40 MG/0.4 ML SYR SC SCH (09:00)
[2017-04-05 09:17] VITALS: BP 110/56; RESP 16; TEMP 99.3; O2SAT 88
[2017-04-05] MEDS: oxyCODONE IR 5 MG TAB PO PRN (13:11)
--- NOTE | 2017-04-05 13:39 | PDIAF ---
- Diagnosis Diagnosis: Right knee osteoarthritis Code Status: Full Code - Medication Management Discharge Medications: Medications to Continue on Transfer Ascorbic Acid [Vitamin C 500 mg (*)] 1 tab PO DAILY 10/07/13 [Last Taken 1 Week Ago ~03/28/17] Herbals/Supplements -Info Only 1 ea PO DAILY 10/24/16 [Last Taken 1 Week Ago ~] [place]-3 Fatty Acids [Fish Oil 1000 mg (*)] 1,000 mg PO DAILY 10/24/16 [Last Taken 1 Week Ago ~03/28/17] Acetaminophen [Tylenol 325mg (*)] 650 mg PO Q6HRS tab 04/05/17 [Last Taken Unknown] Enoxaparin [Lovenox 40 MG (*)] 40 mg SC DAILY #21 syr 04/05/17 [Last Taken Unknown] oxyCODONE IR [Oxycodone Ir (*)] 5 - 10 mg PO Q3HRS PRN #50 tab 04/05/17 [Last Taken Unknown] Operations/Dispatch Antibiotics: None Discharge Medications: Refer to the Discharge Home Medication list for PRN reason. - Orders Services needed: Physical Therapy (Pt will require home health physical therapy as he will need PT twice weekly and is not able to drive) Diet Recommendation: no restrictions on diet Diet Texture: Regular Texture Diet Wound Care Instructions: Pt is to keep incision site clean and dry at all times until follow up Activity/Weight Bearing Restrictions: Pt is to remain WBAT - Follow Up Care Current Providers and Referrals: Miguelito Nugent MD [Medical Doctor] - (Follow-up with Dr. Nugent at your first post-operative appointment. Call sooner with any questions or concerns.) Earnest Lee MD [Primary Care Provider] -
--- NOTE | 2017-04-05 14:46 | ASDISCHSUM ---
Discharge Information Plan Status:Home with Home Health Medically Cleared to Leave: Discharge Date:04/05/2017 01:48 PM CM D/C Disposition:Home Health Service ADT D/C Disposition:Home Health Service Projected Discharge Date:04/05/2017 11:00 AM Transportation at D/C:Family Discharge Delay Reason: Follow-Up Date:04/05/2017 11:00 AM Discharge Slot: Final Diagnosis: Placement Information Referral Type:*Home Health Care Services Referral ID:[facility]-[id number] Provider Name:[facility] Address 1:[address] [place] [address] Address 2: City:[place] Selection Factors: State:[place] Patient Contact Information Contact Name:TATIANNA Relationship:Son Address: Work Phone: City: [facility] Phone: [facility] Code: Email: Financial Information Financial Class:RODGER Primary Plan Desc:MEDICARE INPATIENT Primary Plan Number:[id number] Secondary Plan Desc:[employer] MEDICARE Secondary Plan Number:[id number] Assessment Information Intervention Information
--- NOTE | 2017-04-07 12:17 | PDDCSUM ---
Discharge Summary Discharge Summary: 71y/o M with R knee osteoarthritis admitted to undergo R TKA with Dr. Nugent. Pt received one dose of antibiotics prior to surgery and an additional 24 hours of antibiotic prophylaxis post-operatively. Pt was evaluated by PT and OT. Lovenox 40mg daily x 21 days for chemoprophylaxis and SCDs/TEDs for mechanical prophylaxis. Pain was well managed. Orders were written for home PT bi- weekly. Pt was instructed to follow-up with Dr. Nugent 10-14 days post- operatively. Hospital course was otherwise uneventful.
== END 2017-04-05 13:48 | disposition home health service (06) | DRG 470 ==
LOC: F3N 08:06
PROVIDERS: ADMIT Orthopaedic Surgery Sports Medicine; ATTEND Orthopaedic Surgery Sports Medicine
PROC: 0SRC0J9 Replacement of Right Knee Joint with Synthetic Substitute, Cemented, Open Approach (ICD-10-PCS; principal; 2017-04-04 10:15)
DX: M17.11 Unilateral primary osteoarthritis, right knee (principal)
CPT/HCPCS: 97161-GP; 97165-GO; C1713; G8978-GP-CI; G8979-GP-CI; G8980-GP-CI; G8987-GO-CI; G8988-GO-CI; G8989-GO-CI; J0171; J0690; J1650; J1885; J2250; J2704; J2795

== ENCOUNTER → 2017-07-05 | Outpatient (CLI) | payer OTHER | LOC: FIMAGING 10:48 | PROVIDERS: ATTEND Otolaryngology | DX: R05 Cough (principal) ==

== ENCOUNTER → 2017-07-26 | Outpatient (CLI) | payer OTHER | LOC: FIMAGING 09:50 | PROVIDERS: ATTEND Internal Medicine | DX: R93.8 Abnormal findings on diagnostic imaging of other specified body structures (principal) ==

== ENCOUNTER 2017-08-17 14:25 | Inpatient (IN) | payer OTHER ==
--- NOTE | 2017-08-17 14:57 | EDPHY ---
H & P Time Seen by Provider: 08/17/17 14:39 HPI/ROS: CHIEF COMPLAINT: Shortness of breath HISTORY OF PRESENT ILLNESS: 71-year-old man usually very active rides a bicycle and he is 1st noticed feeling short of breath and mid June when he hiked up to the [place] and his liking behind his friends which is not typical. He then noticed symptoms get worse and worse during trip to go skiing and finally at the gym on Sunday he had to cut his workout short. Over yesterday and today he can't even go up 1 flight of stairs without stopping to catch his breath. He was prescribed prednisone Tessalon Perles and Z-Tonny a week ago Sunday at [facility]. He had a noncontrast chest CT in July 26 of this year which did not show reason for dyspnea. Today symptoms are severe and worse with exertion and not associated with chest pain. REVIEW OF SYSTEMS: Eye: no change in vision ENT: no sore throat Cardiac: no chest pain or syncope Pulmonary: HPI Abdomen: no vomiting, diarrhea, abdominal pain Musculoskeletal: No leg swelling Skin: no rash Neuro: no headache Constitutional: no fever : no urinary symptoms A comprehensive 10 point review of systems is otherwise negative aside from elements mentioned in the history of present illness. PAST MEDICAL HISTORY: Total knee arthroplasty, appendectomy, atrial fibrillation with ablation in November of 2016 Social history: Nonsmoker General Appearance: Alert and conversant, cooperative. Eyes: No scleral icterus. ENT, Mouth: Normal mucous membranes. Respiratory: Patient tachypneic with decreased breath sounds bilaterally but no wheezing. Cardiovascular: Regular rate and rhythm. Gastrointestinal: Abdomen is soft and non tender. Neurological: Alert, face symmetric, normal motor and sensory in extremities. Skin: Warm and dry, no rashes. Musculoskeletal: No peripheral edema. No calf tenderness. Psychiatric: Not agitated. Emergency Department course/MDM: Differential broad includes but not limited to cardiomyopathy, CHF, pulmonary embolism, anemia, acidosis. Plan for EKG, echo, D-dimer, labs to include CBC chemistry BNP and troponin. 1536: D-dimer is 5.9, CT angiography discussed and consented. 1618: CTA personally interpreted as large volume pulmonary embolism, reviewed with the patient on the computer system, hospitalist contacted for admission and anticoagulation initiated in the emergency department. Risk benefit alternatives discussed the patient and consented. Lovenox per Ravin. Smoking Status: Never smoked Constitutional: Initial Vital Signs Temperature (C) 36.4 C 08/17/17 14:29 Heart Rate 100 08/17/17 14:29 Respiratory Rate 18 08/17/17 14:29 Blood Pressure 136/94 H 08/17/17 14:29 O2 Sat (%) 93 08/17/17 14:29 O2 Delivery Mode Room Air O2 (L/minute) 2 Allergies/Adverse Reactions: No Known Allergies Allergy (Verified 08/17/17 16:36) Home Medications: Medication Instructions Recorded Ascorbic Acid [Vitamin C 500 mg 500 mg PO DAILY 08/17/17 (*)] Azithromycin [Zithromax] 250 mg PO DAILY 08/17/17 Benzonatate [Tessalon Pearles (RX)] 100 mg PO Q8H 08/17/17 [place]-3 Fatty Acids [Fish Oil 1000 1,000 mg PO DAILY 08/17/17 mg (*)] Medical Decision Making - Diagnostics EKG Interpretation: 12-lead EKG interpreted by me; official reading is in trace master. My interpretation is sinus rhythm with left axis and multiple nonspecific T-wave inversions Imaging Results: Imaging Impressions Chest/Thorax CTA 08/17/17 15:35 Impression: 1. Large volume bilateral pulmonary emboli. 2. Mild right heart strain with flattening of the interventricular septum. 3. Findings suspicious for pulmonary infarction inferior aspect of left upper lobe and inferior right upper lobe. Focal pneumonia is felt to be less likely. Findings discussed with VARUN CLARKE at 16:31 hour, 08/17/2017. Large volume pulmonary embolism per Dr. Allen at 4:32 p.m. Differential Diagnosis: Differential diagnosis considered for shortness of breath including but not limited to pulmonary infectious process, COPD, asthma, pulmonary embolus and congestive heart failure. Consult/Admit Bed Type: [facility], get echo 1553; [facility] 1636 Critical Care Time: Critical care time spent by me, Dr. Clarke, exclusively with the care of this patient was 30 minutes, exclusive of PA or PIGMENT FURNACE TENDER time and exclusive of separate procedures. The organ system at risk was cardiopulmonary and I ordered multiple diagnostics including labs, CT, echo and anticoagulation including subcutaneous Lovenox, discussion with hospitalist to stabilize the patient and prevent worsening of the patient's condition. - Data Points Laboratory Results: Laboratory Results 08/17/17 14:53 08/17/17 14:53 08/17/17 08/17/17 08/17/17 14:53 14:53 14:53 WBC 8.83 10^3/uL 10^3/uL (3.80-9.50) RBC 5.49 10^6/uL 10^6/uL (4.40-6.38) Hgb 16.4 g/dL g/dL (13.7-17.5) Hct 47.1 % % (40.0-51.0) MCV 85.8 fL fL (81.5-99.8) MCH 29.9 pg pg (27.9-34.1) MCHC 34.8 g/dL g/dL (32.4-36.7) RDW 13.2 % % (11.5-15.2) Plt Count 186 10^3/uL 10^3/uL (150-400) MPV 9.1 fL fL (8.7-11.7) Neut % (Auto) 73.5 % % (39.3-74.2) Lymph % (Auto) 11.3 % L % (15.0-45.0) Grand % (Auto) 14.2 % H % (4.5-13.0) Eos % (Auto) 0.2 % L % (0.6-7.6) Baso % (Auto) 0.2 % L % (0.3-1.7) Nucleat RBC Rel Count 0.0 % % (0.0-0.2) Absolute Neuts (auto) 6.49 10^3/uL 10^3/uL (1.70-6.50) Absolute Lymphs (auto) 1.00 10^3/uL 10^3/uL (1.00-3.00) Absolute Monos (auto) 1.25 10^3/uL H 10^3/uL (0.30-0.80) Absolute Eos (auto) 0.02 10^3/uL L 10^3/uL (0.03-0.40) Absolute Basos (auto) 0.02 10^3/uL 10^3/uL (0.02-0.10) Absolute Nucleated RBC 0.00 10^3/uL 10^3/uL (0-0.01) Immature Gran % 0.6 % % (0.0-1.1) Immature Gran # 0.05 10^3/uL 10^3/uL (0.00-0.10) D-Dimer 5.90 ug/mLFEU H ug/mLFEU (0.00-0.50) Sodium 139 mEq/L mEq/L (135-145) Potassium 4.3 mEq/L mEq/L (3.5-5.2) Chloride 101 mEq/L mEq/L (97-110) Carbon Dioxide 24 mEq/l mEq/l (22-31) Anion Gap 14 mEq/L mEq/L (8-16) BUN 25 mg/dL H mg/dL (7-23) Creatinine 1.1 mg/dL mg/dL (0.7-1.3) Estimated GFR > 60 Glucose 137 mg/dL H mg/dL (70-100) Calcium 9.1 mg/dL mg/dL (8.5-10.4) Troponin I 0.073 ng/mL H ng/mL (0.000-0.034) NT-Pro-B Natriuret Pep 8520 pg/mL H pg/mL (0-125) Medications Given: Discontinued Medications Enoxaparin Sodium (Lovenox) 80 mg SC EDNOW ONE Stop: 08/17/17 16:39 Last Admin: 08/17/17 18:00 Dose: 80 mg Departure - Departure Disposition: [facility] Acute Clinical Impression: Pulmonary embolism Qualifiers: Pulmonary embolism type: other Chronicity: acute Acute cor pulmonale presence: with acute cor pulmonale Qualified Code(s): I26.09 - Other pulmonary embolism with acute cor pulmonale Condition: Fair
--- NOTE | 2017-08-17 15:03 | CPEKG ---
Heart Rate: 86 RR Interval: 698 P-R Interval: 216 QRSD Interval: 84 QT Interval: 420 QTC Interval: 503 P [place]: -24 QRS [place]: -34 T Wave [place]: 144 EKG Severity - ABNORMAL ECG - EKG Impression: SINUS RHYTHM EKG Impression: LEFT AXIS DEVIATION EKG Impression: ABNORMAL T, PROBABLE ISCHEMIA, ANT-LAT LEADS EKG Impression: PROLONGED QT INTERVAL Electronically Signed By: Shree Oneill 17-Aug-2017 15:07:46
[2017-08-17 15:06] LABS: PLATELET COUNT 186 10^3/uL (150-400)
[2017-08-17] MEDS ORDERED: IOPAMIDOL (ISOVUE 370) 100 ML BTL IV ONE (15:48)
[2017-08-17] MEDS ORDERED: ENOXAPARIN 80 MG/0.8 ML SYR SC ONE (16:38)
[2017-08-17] MEDS ORDERED: ACETAMINOPHEN 325 MG TAB PO PRN (17:07)
[2017-08-17] MEDS ORDERED: ALBUTEROL 3 ML DEYVIAL IH PRN (17:07)
[2017-08-17] MEDS ORDERED: oxyCODONE IR 5 MG TAB PO PRN (17:07)
--- NOTE | 2017-08-17 18:28 | ECHO ---
[email or web address] [address] Main: [phone] Fax: [email or web address] Echocardiogram Name: QUYNH ZAZUETA MR#: [id number] Study Date: 08/17/2017 Study Time: 05:07 PM Date of : 1945 Age: 71 year(s) Height: 190.5 cm (75 in.) Weight: 79.38 kg (175 lb.) BSA: 2.07 m2 Gender: Male Examination: Echo Indication: dyspnea and BNP 8000 Image Quality: Adequate Contrast: Requested by: Shree Oneill BP: 124 mmHg/79 mmHg Heart Rate: Rhythm: Normal sinus rhythm Indication: dyspnea and BNP 8000 Procedure Staff Director Of Religious Activities: Vaishali Marie [facility] Reading Physician: Shanna Cherry Requesting Provider: Shree Oneill Conclusions: The left ventricle cavity is small. Mild to moderate LVH. Normal global systolic LV function. EF is 67 %. Flattened and paradoxical interventricular septum consistent with RV pressure overload. Moderate to severely dilated right ventricle. Moderately to severely reduced right ventricular function. The right atrium is mildly dilated. Mild mitral valve regurgitation is present. Mild to moderate tricuspid valve regurgitation. Right ventricular systolic pressure measures 78mmHg. The pulmonary artery pressure is severely increased. Small pericardial effusion. Results discussed with Dr. Oneill Compared with 11/2016 RV is now more dilated with reduced systolic function. Severe PHTN now present Measurements: Chambers Valvular Assessment AV/MV Valvular Assessment TV/PV Normal Normal Normal Name Value Range Name Value Range Name Value Range Ao Keesha (MM): 3.4 cm (2.2 cm-3.7 AV Vmax: 1.35 m/s (1 m/s-1.7 TR Vmax: 3.98 mm/s ( - ) cm) m/s) TR PGmax: 63 mmHg ( - ) IVSd (2D): 1.3 cm (0.6 cm-1.1 AV maxP mmHg ( - ) syst. PAP: 78 mmHg ( - ) cm) LVOT Vmax: 1.26 m/s (0.7 m/s-1.1 PV Vmax: 0.77 m/s (0.6 m/s-0.9 LVDd (2D): 4.0 cm (4.2 cm-5.9 m/s) m/s) cm) MV E Vmax: 0.38 m/s ( - ) PV PGmax: 2 mmHg ( - ) LVDs (2D): 2.6 cm (2.1 cm-4 MV A Vmax: 0.57 m/s ( - ) cm) MV E/A: 0.67 ( - ) Patient: QUYNH ZAZUETA Study Date: 08/17/2017 Page 1 of 2 05:07 PM LVPWd (2D): 1.0 cm (0.6 cm-1 cm) LVEF (BP): 67 % (>=55 %) RVDd(2D): 4.9 cm (1.9 cm-3.8 cmmm) Continued Measurements: Chambers Valvular Assessment AV/MV Valvular Assessment TV/PV Name Value Name Value Name Value LADs Lon.1 cm MV DecTime: 236 m/s CVP (est.): 15 mmHg LA Area: 19.5 cm2 MV E/E' Septal: 8.70 LA Volume: 52 ml MV E/E' Lateral: 3.30 LA Volume Index: 25.1 ml/m2 TAPSE: 1.0 cm RA Area: 17.3 cm2 Additional Vessels Name Value Ao Ascendin.4 cm Findings: Left Ventricle: The left ventricle cavity is small. Mild to moderate LVH. Normal global systolic LV function. EF is 67 %. Diastolic LV function normal for age. Flattened and paradoxical interventricular septum consistent with RV pressure overload. Right Ventricle: Moderate to severely dilated right ventricle. Moderately to severely reduced right ventricular function. Left Atrium: The left atrium is normal in size. Right Atrium: The right atrium is mildly dilated. Mitral Valve: The mitral valve is normal in appearance and function. There is mild thickening of the mitral valve leaflets. Mild mitral valve regurgitation is present. No mitral stenosis is present. Aortic Valve: The aortic valve is tri-leaflet and functions normally. There is no significant aortic valve regurgitation. No aortic valve stenosis is present. Tricuspid Valve: Mild to moderate tricuspid valve regurgitation. Right ventricular systolic pressure measures 78mmHg. The pulmonary artery pressure is severely increased. Pulmonic Valve: The pulmonic valve is normal in appearance and function. Mild pulmonic valve regurgitation is noted. Aorta: Normal size aortic root measuring 3.4 cm. Normal size ascending aorta measuring 3.4 cm. IVC: The IVC is dilated. There is less than 50% respiratory excursion. Pericardium: Small pericardial effusion. (No Signature Object) Patient: QUYNH ZAZUETA Study Date: 08/17/2017 Page 2 of 2 05:07 PM [id number]
--- NOTE | 2017-08-17 18:36 | PDGENHP ---
History and Physical - Chief Complaint WANG - History of Present Illness Pleasant 71 yo male presented with progressive Dyspnea on exertion. His SOB dates back to mid June. In the E.D. a CT showed large volume bilateral PE with infarct and right sided strain. Troponin is indeterminate. He does not have LE swelling or pain. He does not have a hx of DVT or PE. He is not having chest pain. He coughs when trying to take a deep breath. He was recently prescribed Prednisone and Zpak about a week ago w/o any improvement. He has a hx of Afib with ablation in November of 2016 and he is a patient at [facility]. He is not on chronic AC. He denies fever. He denies focal weakness. Denies jaw pain, numbness, or arm pain. 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 FmHx: negative for VTE History Information - Allergies/Home Medication List Allergies/Adverse Reactions: No Known Allergies Allergy (Verified 08/17/17 16:36) Home Medications: Ascorbic Acid [Vitamin C 500 mg (*)] 500 mg PO DAILY 08/17/17 [Last Taken ] Azithromycin [Zithromax] 250 mg PO DAILY 08/17/17 [Last Taken 08/17/17] Benzonatate [Tessalon Pearles (RX)] 100 mg PO Q8H 08/17/17 [Last Taken 08/17/17] [place]-3 Fatty Acids [Fish Oil 1000 mg (*)] 1,000 mg PO DAILY 08/17/17 [Last Taken 08/17/17] I have personally reviewed and updated: medical history, social history - Social History Smoking Status: Never smoked Review of Systems Review of Systems: ROS: 10pt was reviewed & negative except for what was stated in HPI & below Physical Exam Physical Exam: Temp Pulse Resp BP Pulse Ox 36.4 C 80 18 128/82 H 98 08/17/17 14:29 08/17/17 18:19 08/17/17 18:19 08/17/17 18:19 08/17/17 18:19 O2 (L/minute) 2 Constitutional: no apparent distress Eyes: PERRL Ears, Nose, Mouth, Throat: moist mucous membranes, hearing normal Cardiovascular: regular rate and rhythym, No JVD, No edema Respiratory: no respiratory distress, reduced air movement, No no rales or rhonchi, No expiratory wheeze Gastrointestinal: normoactive bowel sounds, soft, non-tender abdomen Skin: warm Musculoskeletal: full muscle strength Neurologic: AAOx3 Psychiatric: interacting appropriately, not anxious, not encephalopathic, thought process linear Lab Data & Imaging Review 08/17/17 14:53 08/17/17 14:53 WBC 8.83 10^3/uL (3.80-9.50) 08/17/17 14:53 RBC 5.49 10^6/uL (4.40-6.38) 08/17/17 14:53 Hgb 16.4 g/dL (13.7-17.5) 08/17/17 14:53 Hct 47.1 % (40.0-51.0) 08/17/17 14:53 MCV 85.8 fL (81.5-99.8) 08/17/17 14:53 MCH 29.9 pg (27.9-34.1) 08/17/17 14:53 MCHC 34.8 g/dL (32.4-36.7) 08/17/17 14:53 RDW 13.2 % (11.5-15.2) 08/17/17 14:53 Plt Count 186 10^3/uL (150-400) 08/17/17 14:53 MPV 9.1 fL (8.7-11.7) 08/17/17 14:53 Neut % (Auto) 73.5 % (39.3-74.2) 08/17/17 14:53 Lymph % (Auto) 11.3 % (15.0-45.0) L 08/17/17 14:53 [place] % (Auto) 14.2 % (4.5-13.0) H 08/17/17 14:53 Eos % (Auto) 0.2 % (0.6-7.6) L 08/17/17 14:53 Baso % (Auto) 0.2 % (0.3-1.7) L 08/17/17 14:53 Nucleat RBC Rel Count 0.0 % (0.0-0.2) 08/17/17 14:53 Absolute Neuts (auto) 6.49 10^3/uL (1.70-6.50) 08/17/17 14:53 Absolute Lymphs (auto) 1.00 10^3/uL (1.00-3.00) 08/17/17 14:53 Absolute Monos (auto) 1.25 10^3/uL (0.30-0.80) H 08/17/17 14:53 Absolute Eos (auto) 0.02 10^3/uL (0.03-0.40) L 08/17/17 14:53 Absolute Basos (auto) 0.02 10^3/uL (0.02-0.10) 08/17/17 14:53 Absolute Nucleated RBC 0.00 10^3/uL (0-0.01) 08/17/17 14:53 Immature Gran % 0.6 % (0.0-1.1) 08/17/17 14:53 Immature Gran # 0.05 10^3/uL (0.00-0.10) 08/17/17 14:53 D-Dimer 5.90 ug/mLFEU (0.00-0.50) H 08/17/17 14:53 Sodium 139 mEq/L (135-145) 08/17/17 14:53 Potassium 4.3 mEq/L (3.5-5.2) 08/17/17 14:53 Chloride 101 mEq/L (97-110) 08/17/17 14:53 Carbon Dioxide 24 mEq/l (22-31) 08/17/17 14:53 Anion Gap 14 mEq/L (8-16) 08/17/17 14:53 BUN 25 mg/dL (7-23) H 08/17/17 14:53 Creatinine 1.1 mg/dL (0.7-1.3) 08/17/17 14:53 Estimated GFR > 60 08/17/17 14:53 Glucose 137 mg/dL (70-100) H 08/17/17 14:53 Calcium 9.1 mg/dL (8.5-10.4) 08/17/17 14:53 Troponin I 0.073 ng/mL (0.000-0.034) H 08/17/17 14:53 NT-Pro-B Natriuret Pep 8520 pg/mL (0-125) H 08/17/17 14:53 Assessment & Plan Assessment: #Acute bilateral PE with MORAIMA and RUL infarct and right sided strain #indeterminate troponin likely due to right sided strain. No chest pain -EKG personally reviewed with no Acute ischemic changes #WANG due to bilateral PE #prolonged QT #Hx of Afib, s/p ablation Plan: Admit no leg swelling, but will get LE doppler to r/o DVT and assess need for filter given right hear strain Lovenox TTE serial trops Cards consulted by the E.D. Telemetry appropriate home meds
--- NOTE | 2017-08-17 19:13 | PDMN ---
Medical Necessity Medical necessity: C/M review: est. > 2 MN LOS for eval and TX of acute bilateral pulmonary emboli with right upper lobe and left upper lobe infarct and right sided cardiac strain, dyspnea on exertion, prolonged QT requiring planned Doppler US of lower extremities, echocardiogram, Cardiology consult, ongoing subcutaneous Lovenox, cardiac monitoring, pulse oximetry, supplemental O2, comorbid history of atrial fibrillation S/P ablation. per H/P
[2017-08-17] MEDS: ENOXAPARIN 80 MG/0.8 ML SYR SC SCH (20:12)
[2017-08-18 04:44] LABS: PLATELET COUNT 172 10^3/uL (150-400)
[2017-08-18] MEDS: ENOXAPARIN 80 MG/0.8 ML SYR SC SCH ×3 (08:56→19:54)
--- NOTE | 2017-08-18 09:01 | HOSPPROG ---
Hospitalist Progress Note Assessment/Plan: 71 yo male admitted with PE, large clot load to left and right lung, echo showing right heart failure with elevated troponin, severe PHTN; no hypotension , rhytm disturbance. h/o atrial fib and s/p ablation 11/2016. h/o right knee replacement with 3 weeks lovenox 40mg qday. patient new to me today -PE: on lovenox. Will transition to Eliquis tomorrow. -atrial fib by history; NSR now, stable -right knee replacement post: doing well. No homans sign, minor swelling without pain -dispo: possible discharge tomorrow on eliquis. patient requires > 2 midnight stay to monitor rhythm, BP, Sao2 due to large clot load. discussed with cardiology; CT scan reviewed by myself Time: 45 minutes Subjective: reports feeling well. feels some chest pain with deep breath, no hemoptysis Objective: Vital Signs Temp Pulse Resp BP Pulse Ox 36.8 C 65 20 102/67 94 08/18/17 07:29 08/18/17 07:29 08/18/17 07:29 08/18/17 07:29 08/18/17 07:29 Laboratory Results 08/18/17 03:41 08/18/17 03:41 08/17/17 08/18/17 08/19/17 05:59 05:59 05:59 Intake Total 400 Output Total 250 Balance 150 - Time Spent With Patient Time Spent with Patient: greater than 35 minutes Time Spent with Patient: Greater than 35 minutes spent on this patients care, greater than 50% of time spent counseling, educating, and coordinating care regarding the above mentioned plan. - Pending Discharge Pending Discharge Within 24 Hours: Yes Pending Discharge Date: 08/19/17 Pending Discharge Time: 11:00 - Physical Exam Constitutional: no apparent distress Eyes: PERRL, anicteric sclera Ears, Nose, Mouth, Throat: moist mucous membranes, hearing normal Cardiovascular: regular rate and rhythym, no murmur, rub, or gallop Respiratory: no respiratory distress, reduced air movement, dullness to percussion Gastrointestinal: normoactive bowel sounds Genitourinary: no bladder fullness, no bladder tenderness Musculoskeletal: full muscle strength, other (trace edema on right leg) Neurologic: AAOx3 Psychiatric: interacting appropriately Lymph, Heme, Immunologic: no cervical LAD ICD10 Worksheet Patient Problems: Problems Problem Status Onset Pulmonary embolism Acute Atrial fibrillation or flutter Acute Atrial tachycardia Acute
--- NOTE | 2017-08-18 14:58 | ASMTCMCOM ---
CM Note CM Note Notes: Pt will likely be ready for DC tomorrow. Anticipate he will have no DC needs. Date Signed: 08/18/2017 02:58 PM Electronically Signed By:Delicia Hector LCSW
[2017-08-18] MEDS ORDERED: BENZONATATE 100 MG CAP PO PRN (16:59)
[2017-08-19 04:24] LABS: PLATELET COUNT 171 10^3/uL (150-400)
[2017-08-19 04:59] VITALS: RESP 16
[2017-08-19 07:24] VITALS: BP 96/64; PULSE 60; TEMP 97.5; O2SAT 93
[2017-08-19] MEDS ORDERED: FLU VACC QS 2017-18 (3YR+)/PF 0.5 ML SYR (FLUARIX QUAD) IM ONE ×2 (09:00→12:30)
[2017-08-19] MEDS: ENOXAPARIN 80 MG/0.8 ML SYR SC SCH (09:17)
--- NOTE | 2017-08-19 15:25 | ASDISCHSUM ---
Discharge Information Plan Status: Medically Cleared to Leave: Discharge Date:08/19/2017 02:53 PM CM D/C Disposition: ADT D/C Disposition:Home, Routine, Self-Care Projected Discharge Date:08/19/2017 02:53 PM Transportation at D/C: Discharge Delay Reason: Follow-Up Date:08/19/2017 02:53 PM Discharge Slot: Final Diagnosis: Placement Information Patient Contact Information Contact Name:TATIANNA Relationship:Renaldo Address: Work Phone: City: [facility] Phone: State/Zip Code: Email: Financial Information Financial Class: Primary Plan Desc:MEDICARE INPATIENT Primary Plan Number:[id number] Secondary Plan Desc:[employer] MEDICARE Secondary Plan Number:[id number] Assessment Information BC CM Progress Note CM Note CM Note Notes: Pt will likely be ready for DC tomorrow. Anticipate he will have no DC needs. Date Signed: 08/18/2017 02:58 PM Electronically Signed By:Delicia Hector LCSW Intervention Information
--- NOTE | 2017-08-19 20:56 | GDS ---
[f rep st] DISCHARGE SUMMARY NEW AND ACUTE DIAGNOSES: 1. Acute pulmonary embolus. 2. Atrial fibrillation by history, now stable, in normal sinus rhythm. 3. Right knee replacement post 3 months [employer]. CONSULTATIONS: None. PROCEDURES: CTA of the chest showing large volume bilateral pulmonary emboli with mild right heart s train with flattening of the intraventricular septum. Another procedure is an echocardiogram showing an EF of 67%, flattened and paradoxical interventricul ar septum consistent with RV pressure overload and [id number] tricuspid regurg. Extremity venous study shows occlusive thrombus in the left popliteal and peroneal vein. The right s arnaud of the lower extremity showed normally compressible veins from the groin to the upper calf. No t hrombosis is noted on the right. HOSPITAL COURSE: A 71-year-old male presented with shortness of breath. He was noted on admission t o be tachypneic and tachycardic, and mildly hypertensive, with a normal respiratory rate, afebrile, a nd adequate oxygen saturation. He was found to have large volume pulmonary emboli felt secondary to clot from the left lower extremity. He was initially placed on Lovenox and was going to be transitio brian to oral agents on discharge. He did well, had normal oxygenation, had some very minor pleuritic chest pain that was treated with Tylenol, and then no longer required pain medication. DISCHARGE MEDICATIONS: New medication is Tylenol for pain. He was discharged on Eliquis, but his insurance company changed him to Xarelto 15 mg p.o. b.i.d. x21 days, and then 20 mg daily following. His continued medications are omega-3 fatty acids, ascorbic vi tamin C, and Tessalon Perles. Discontinued medication is Zithromax. PLAN: The gentleman will follow up with his PCP, Dr. Earnest Lee, but more specifically Dr. Chris Perez, of [facility], regarding his future pulmonary care. TIME: This discharge required 50 minutes, greater than 50% to child guidance counselor and coordinate care, and make changes with his insurance company for the Xarelto. /[id number]/MODL
== END 2017-08-19 14:53 | disposition home or self-care (01) | DRG 176 ==
LOC: F2W 18:30
PROVIDERS: ADMIT Family Medicine; ATTEND Family Medicine
DX: I26.99 Other pulmonary embolism without acute cor pulmonale (principal); I82.432 Acute embolism and thrombosis of left popliteal vein; I82.492 Acute embolism and thrombosis of other specified deep vein of left lower extremity; I48.91 Unspecified atrial fibrillation; Z96.651 Presence of right artificial knee joint; Z23 Encounter for immunization
CPT/HCPCS: G0008; J1650; Q9967

== ENCOUNTER → 2018-05-01 | Outpatient (CLI) | payer OTHER, MEDICARE | LOC: FIMAGING 09:58 | PROVIDERS: ATTEND Internal Medicine Pulmonary Disease | DX: I82.4Z2 Acute embolism and thrombosis of unspecified deep veins of left distal lower extremity (principal) | CPT/HCPCS: 85300-90; 85302-90; 85306-90 ==

== ENCOUNTER → 2018-09-11 | Outpatient (CLI) | payer OTHER, MEDICARE ==
[~2018-09-11] MED LIST changes: +GADOBUTROL 10 ML VIAL IVP ONE; -ROPIVACAINE 0.2% 80 MG, EPINEPHrine 0.2 MG, KETOROLAC TROMETHAMINE 30 MG, morphINE 10 M... IU ONE; -TRANEXAMIC ACID 1,000 MG in NS 100 ML IV ONE
== END ==
LOC: FIMAGING 06:53
PROVIDERS: ATTEND Psychiatry & Neurology Neurology
DX: R48.1 Agnosia (principal)
CPT/HCPCS: 70553; A9585; 82565-PO

== ENCOUNTER → 2018-10-30 | Outpatient (CLI) | payer OTHER, MEDICARE | LOC: BHFA 09:15 | PROVIDERS: ATTEND Internal Medicine Cardiovascular Disease | DX: I63.033 Cerebral infarction due to thrombosis of bilateral carotid arteries (principal) ==